=== PATIENT | female | born 1960 | race Caucasian/White ===

== ENCOUNTER 2025-03-27 18:22 | Emergency (ER) | payer BC, SELFPAY ==
[2025-03-27 18:24] VITALS: BP 136/100
[2025-03-27 18:48] VITALS: BMI 25.9
[2025-03-27 19:39] VITALS: BP 160/88
--- NOTE | 2025-03-27 22:29 | ED.GENMED ---
History of Present Illness
General
Chief Complaint: Swelling
Source: patient
Exam Limitations: none
Time Seen by Provider: 03/27/25 18:44
Nursing documentation reviewed up to this point in time: agreed with
History of Present Illness
History of Present Illness:
Patient states she fell 1 week ago injuring RLE. States she continues with swelling to RLE. Brought self to ED for dayanara.
Past History
Past History
ED Past Medical History: None
ED Past Surgical History: None
Social History
Tobacco: Non-smoker
Alcohol: Occasional
Drug: None
Personal:
Living: with family
Employment: Employed
Review of Systems
Review of Systems
Allergies reviewed?: Yes
All Other Systems: ROS reviewed and negative except as documented in HPI and ROS
Constitutional: Reports no symptoms
EENT: Reports no symptoms
Respiratory: Reports no symptoms
Cardiac: Reports no symptoms
ABD/GI: Reports no symptoms
Musculoskeletal: Reports other (Bruising and swellng to RLE. No joint pain)
Skin: Reports other (bruising and swelling to RLE)
Neurological: Reports no symptoms
Psychiatric: Reports no symptoms
Phy Exam
General Physical Exam
General Presentation: well appearing and no apparent distress
General age: appears stated age
General Skin: warm and dry
General Habitus: normal
Musculoskeletal Exam
Musculoskeletal Exam: full ROM and neuro vasc intact
Skin Exam
Skin Exam: warm/dry, no rash and other (Old bruising to RLE - below knee to foot)
Psychiatric Exam
Psychiatric Exam: normal mood/affect
Scores
Heart Failure Risk
Heart Failure Risk Score: Not Applicable
Course
Orders/Labs/Results
Orders:
Orders
03/27/25 18:27
Electrocardiogram (*1) Urgent
Reason for Study: Bradycardia / Tachycardia
EKG- Treatment ONCE
US Periph Venous LOWER Ext RT Urgent
Comment:
Reason For Exam: swelling/bruising
Vital Signs
Initial and Last Documented VS:
Initial Vital Signs
Temp Pulse Resp BP Pulse Ox
98.4 F 125 17 136/100 97
03/27/25 18:24 03/27/25 18:24 03/27/25 18:24 03/27/25 18:24 03/27/25 18:24
Last Documented Vital Signs
Temp Pulse Resp BP Pulse Ox
98.4 F 90 18 160/88 97
03/27/25 18:24 03/27/25 19:39 03/27/25 19:39 03/27/25 19:39 03/27/25 19:39
*Pulse Oximetry
SaO2: 97
Oxygen Mode of Delivery: Room air
Patient hypoxic: no
*Critical Care Note
Total Time (30-74mins, 75-104mins- exclusive of procedures): Not Applicable
Update Note
Update Note:
RLE bruising and swelling. SHe had a large post trauma hematoma to just below right knee. Blood continues to migrate down to foot, DVT study neg. SHe has full nonpainful ROM to leg. Xray offered but declined by patient. Able to ambulate without
assistance.
ED Attending Note
-
Portions of this chart may have been created with voice recognition software.� Occasional wrong word or��sound alike� substitutions may have occurred due to the inherent limitations of voice recognition software.
Discharge Plan
Departure
Patient Disposition: Home (Routine Discharge)
Date of Disposition: 03/27/25
Time of Disposition: 20:03
Patient with high blood pressure during this ER visit?: No
Condition: Good
Covid-19: Not Applicable
Discharge Problem:
Traumatic hematoma of knee
Instructions: Taking care of bruises, Contusion
Prescriptions:
No Action
prednisone 10 MG tablet
10 mg PO .TAPER Qty: 45 0RF
Rx Instructions:
Take 50mg daily x3days, 40mg daily x3days,
30mg daily x3days, 20mg daily x3days,
10mg daily x3days
prednisone 20 mg tablet
60 mg PO DAILY 7 Days Qty: 21 0RF
valacyclovir [Valtrex] 1 gram tablet
1,000 mg PO TID 7 Days Qty: 21 0RF
Referrals:
NONE,* [Family Provider, Internal Medicine]
Activity Restrictions/Additional Instructions:
Follow up with your family doctor.
Interventions
Interventions:
*Risk Screen - Suicide Last Done: 03/27/25 18:26
*General Assessment Last Done: 03/27/25 18:26
*Neglect/Abuse Screening Last Done: 03/27/25 18:26
*ED- Fall Risk Assessment Last Done: 03/27/25 18:48
*ED COVID-19 Vaccine History Last Done: 03/27/25 18:26
*Nursing Disposition Last Done: 03/27/25 20:11
ED- Cardiac Assessment Last Done: 03/27/25 18:50
ED- Pulmonary Assessment Last Done: 03/27/25 18:50
ED-Skin Assessment Last Done: 03/27/25 18:50
Discharge Date and Time
Discharge Date/Time: 03/27/25 20:12
Print Language: CROATIAN
Musculoskeletal Injury Exam
Musculoskeletal Injury Exam
Right Lower Leg:
Pain with Movement?: Mild
Tender to palpation?: Mild
Soft tissue swelling?: Moderate
External deformity and angulation?: None
Joint effusion?: None
Contusion?: Moderate
Hematoma-local bleeding into tissue?: Moderate
Strain- Sprain- Tear (Connective tissue injury)?: None
Crepitus with movement?: No
Joint instability?: No
Malalignment/deformity?: No
Range of motion: Full
Distal skin color and temperature: normal-warm & good color
Capillary Refill: normal
Normal distal neurovascular exam?: Yes
== END 2025-03-27 20:12 | disposition home or self-care (01) ==
LOC: EMR 18:22
PROVIDERS: EMERGENCY PHYSICIAN Emergency Medicine
DX: S80.01XA Contusion of right knee, initial encounter (principal); W19.XXXA Unspecified fall, initial encounter
CPT/HCPCS: 99284; 93005; 93971